=== PATIENT | male | born 1955 | race Hispanic/Latino ===

== ENCOUNTER 2018-08-26 14:51 | Observation (INO) | payer OTHER ==
[~2018-08-26] VITALS: Ht 182.9 cm; Wt 87.5 kg
[2018-08-26] MEDS ORDERED: INSULIN HUMULIN R 100 UNIT/ML 3ML ONE ×2 (16:29→20:18)
[2018-08-26 16:33] LABS: BASOPHILS % (AUTO) 0.3 % (0.0-5.0); HEMATOCRIT 52.9 % (42-54); LYMPHOCYTES % (AUTO) 12.1 % (21.0-51.0); MEAN CORPUSCULAR HEMOGLOBIN 29.5 pg (27.0-33.0); MEAN CORPUSCULAR HGB CONC 32.5 g/dL (32.0-36.0); MEAN CORPUSCULAR VOLUME 90.6 fL (79-99); MONOCYTES % (AUTO) 7.1 % (3.0-13.0); NEUTROPHILS % (AUTO) 80.5 % (40.0-77.0); NUCLEATED RED BLOOD CELLS 0.1 % (0.0-0.19); PLATELET COUNT (AUTO) 195 K/uL (130-400); RED BLOOD CELL COUNT(AUTO) 5.84 MIL/uL (4.50-6.20); RED CELL DISTRIBUTION WIDTH 15.3 % (11.0-15.5); WHITE BLOOD COUNT (AUTO) 12.6 K/uL (4.8-10.8)
[2018-08-26 16:51] LABS: APPEARANCE,URINE Clear (CLEAR); BILIRUBIN,URINE Negative (NEGATIVE); COLOR,URINE Yellow (YELLOW); GLUCOSE, URINE (UA) >=1000 mg/dL (NEGATIVE); KETONES,URINE 15 mg/dL (NEGATIVE); LEUKOCYTE ESTERASE ,URINE Trace (NEGATIVE); NITRATE,URINE Negative (NEGATIVE); OCCULT BLOOD,URINE Trace (NEGATIVE); PROTEIN,URINE Negative (NEGATIVE); UROBILINOGEN,URINE 0.2 mg/dL (0.2-1.0)
[2018-08-26 16:52] LABS: CARBON DIOXIDE 22 mmol/L (21-32); CHLORIDE 98 mmol/L (101-111); CREATININE 2.1 mg/dL (0.5-1.5); GLOMERULAR FILTR. RATE CALC 34 mL/min (>60); POTASSIUM 4.9 mmol/L (3.5-5.1); SODIUM SERUM 136 mmol/L (136-145); UREA NITROGEN, BLOOD 68 mg/dL (7-18)
[2018-08-26 16:55] LABS: GLUCOSE,RANDOM 728 mg/dL (70-105)
[2018-08-26 17:00] LABS: ACETONE,BLOOD POSITIVE SMALL (NEGATIVE)
[2018-08-26 17:24] LABS: HYALINE CASTS, URINE 0-1 /LPF (0-1 /LPF)
[2018-08-26 17:26] LABS: YEAST,URINE BUDDING Rare /HPF (None Seen)
[2018-08-26 17:27] LABS: BACTERIA,URINE Few /HPF (None Seen); MUCUS,URINE Rare LPF (None Seen)
[2018-08-26] MEDS ORDERED: ACETAMINOPHEN 325 MG TAB PO PRN (19:30)
[2018-08-26] MEDS ORDERED: ONDANSETRON HCL 4 MG/2 ML VIAL IVP PRN (19:30)
[2018-08-26] MEDS: SODIUM CHLORIDE 0.9% 1000ML 1,000 ML IV SCH (19:30)
[2018-08-26] MEDS ORDERED: DEXTROSE 50%-WATER 50 ML DISP.SYRIN IV PRN (19:30)
[2018-08-26] MEDS ORDERED: GLUCAGON 1MG KIT 1 MG ML IM PRN (19:30)
[2018-08-27] MEDS ORDERED: INSULIN HUMULIN R 100 UNIT/ML 3ML ONE (00:58)
[2018-08-27] MEDS ORDERED: NITROGLYCERIN 0.4 MG SL TAB SL ONE (02:51)
[2018-08-27] MEDS ORDERED: LORAZEPAM 2 MG/ML 1 ML VIAL ONE (02:52)
[2018-08-27] MEDS ORDERED: ONDANSETRON HCL 4 MG/2 ML VIAL ONE (03:10)
--- NOTE | 2018-08-27 04:00 | NUR ---
ADMISSION NOTE: Received per wheelchair and transferred in bed comfortably. Amb with guarding.VS checked and recorded. Assessment done. Plan of care initiated. was with the patient. Oriented to room and use of call light. Policies and procedures explained. Verbalized understanding. Monitored and kept watched for any unusualities. Distress / discomfort not noted. Needs attended and cared for.
[2018-08-27 04:05] VITALS: BP 116/74
[2018-08-27] MEDS ORDERED: CHOL100018 PO (05:01)
[2018-08-27] MEDS ORDERED: PRAV40TA3 PO (05:01)
[2018-08-27] MEDS ORDERED: LISI-613 PO (05:01)
[2018-08-27] MEDS ORDERED: ACET-2743 PO (05:01)
[2018-08-27] MEDS ORDERED: AMLO5TAB9 PO (05:01)
[2018-08-27] MEDS ORDERED: LEVO50 PO (05:01)
[2018-08-27] MEDS ORDERED: HYDR12.54 PO (05:01)
[2018-08-27 05:11] LABS: HEMATOCRIT 49.8 % (42-54); MEAN CORPUSCULAR HEMOGLOBIN 28.7 pg (27.0-33.0); MEAN CORPUSCULAR HGB CONC 32.6 g/dL (32.0-36.0); PLATELET COUNT (AUTO) 214 K/uL (130-400); RED BLOOD CELL COUNT(AUTO) 5.66 MIL/uL (4.50-6.20); WHITE BLOOD COUNT (AUTO) 12.9 K/uL (4.8-10.8)
[2018-08-27 05:35] LABS: ALBUMIN 3.3 g/dL (3.5-5.0); BILIRUBIN,TOTAL 0.7 mg/dL (0.2-1.0); CREATININE 1.4 mg/dL (0.5-1.5); POTASSIUM 3.8 mmol/L (3.5-5.1); TOTAL PROTEIN, SERUM 6.8 g/dL (6.0-8.3)
[2018-08-27] MEDS: SODIUM CHLORIDE 0.9% 1000ML 1,000 ML IV SCH ×2 (06:18→17:35)
[2018-08-27] MEDS: INSULIN R PO SS2 SQ SCH ×3 (06:21→10:33)
[2018-08-27 07:00] VITALS: BP 122/75
[2018-08-27] MEDS: PANTOPRAZOLE SODIUM 40 MG TABLET.DR PO SCH (10:10)
--- NOTE | 2018-08-27 11:02 | NUR ---
NOTIFIED DR. ANCA RIVAS NOTIFIED OF PATIENT BLOOD SUGAR 356. INSULIN COVERAGE PROVIDED- SEE EMAR. NO NEW ORDERS RECEIVED AT THIS TIME.
[2018-08-27 11:50] VITALS: BP 110/66
--- NOTE | 2018-08-27 13:00 | NUR ---
CM NOTE /IA MET W PT /SPOUSE, PT SLEEPY,SPOUSE JEROME PROVIDED INFORMATION, WILL PORIVDE TRANSPORT. PT INDP OF ADL, NO DME/HH/PROVIDER, PREVIOUSLY DIET CONTROLLED DIABETIC, NOW W HIGH SUGARS. NO ABG DONE ON ADMIT, TRACE KETONES IN THE URINGE, BG 700, SPOUSE STATES HAS BEEN DRINKNING APPLEY JUICE TO CLEAR HIS ARTERIS SEENON YOU TUBE. NO DC NEEDS ANTICIPATED. Addendum: 08/30/18 at 0719 by DAVI MAXWELL RN CM Amended: Links added.
[2018-08-27] MEDS ORDERED: ACETAMINOPHEN EXTRA STRENGTH 500 MG TABLET PO PRN (13:30)
[2018-08-27 13:45] LABS: HEMOGLOBIN A1C 9.7 % (4.0-6.0)
--- NOTE | 2018-08-27 14:33 | NUR ---
RD Notification Patient asleep upon visit. Patient with 100%PO as per patients . Patient with no complaint of nausea, vomitting. Patient often struggles with BM as per patient's (LBM 08/25/18); Rec to add stool softener. RD provided diet education to , who is main cook/dance teacher of household. verbalized understanding and accepted education reference materials and handouts. with pertinent questions. RD answered all questions. Patient monitored labs: BUN 54, GFR 54, Glu 241, Alb 3.3. RD to continue to monitor. Please notify RD as nutritional concerns arise. Thank you. Addendum: 08/27/18 at [address] RD Amended: Links added.
--- NOTE | 2018-08-27 14:39 | NUR ---
Diet Education Patient sleeping upon visit. JENNIFER provided diet education to , who is main cook/shoe sticks repairer of household. with pertinent questions. RD answered all questions. verbalized understanding and accepted education reference materials and handouts. RD to follow up. Addendum: 08/27/18 at [address] RD Amended: Links added.
--- NOTE | 2018-08-27 15:27 | NUR ---
DIABETES DIET EDUCATION Provided pt with printed materials on diabetes diet. Pt's at bedside who is pt's primary caregiver. Both, pt and his , with multiple nutritional questions. Diet education provided x2, one in the morning-one in the afternoon. Please consult JENNIFER if pt or continue to have diet questions. Addendum: 08/27/18 at [address] Amended: Links added.
[2018-08-27 16:00] VITALS: BP 126/65
[2018-08-27] MEDS: INSULIN HUMULIN R 100 UNIT/ML 3ML SQ SCH ×2 (17:32→21:44)
[2018-08-27] MEDS: INSULIN GLARGINE 100 UNITS/ML 10 ML VIAL SQ SCH ×2 (17:33→21:45)
[2018-08-27 20:00] VITALS: BP 117/71
[2018-08-28] VITALS: BP 114/76
[2018-08-28 04:00] VITALS: BP 135/87
[2018-08-28 04:41] LABS: CHOLESTEROL 210 mg/dL (<200); HDL CHOLESTEROL 28 mg/dL (29-71); LDL DIRECT 94 mg/dL (0-99); TRIGLYCERIDES 495 mg/dL (30-200)
[2018-08-28] MEDS: INSULIN HUMULIN R 100 UNIT/ML 3ML SQ SCH ×4 (06:18→21:44)
[2018-08-28] MEDS: LEVOTHYROXINE 50 MCG TABLET PO SCH (06:52)
[2018-08-28] MEDS: SODIUM CHLORIDE 0.9% 1000ML 1,000 ML IV SCH ×2 (06:52→09:56)
[2018-08-28 08:00] VITALS: BP 136/75
[2018-08-28] MEDS: ***HM*** (Cholecalciferol (Vitamin D3) (Vitamin D3) 1,000 UNIT) PO SCH (09:00)
[2018-08-28] MEDS: PANTOPRAZOLE SODIUM 40 MG TABLET.DR PO SCH (09:55)
[2018-08-28] MEDS: LISINOPRIL 20 MG TABLET PO SCH (09:55)
[2018-08-28] MEDS: AMLODIPINE BESYLATE 5 MG TAB PO SCH (09:55)
[2018-08-28] MEDS: HYDROCHLOROTHIAZIDE 25 MG TABLET PO SCH (09:55)
[2018-08-28] MEDS: SIMVASTATIN 20 MG TABLET PO SCH (10:00)
[2018-08-28 11:55] VITALS: BP 126/77
[2018-08-28] MEDS ORDERED: DOCUSATE SODIUM 100 MG CAP PO PRN (15:30)
[2018-08-28 16:00] VITALS: BP 110/75
[2018-08-28] MEDS: METFORMIN HCL 500 MG TABLET PO SCH (17:09)
[2018-08-28 20:14] VITALS: BP 110/64
[2018-08-28] MEDS: INSULIN GLARGINE 100 UNITS/ML 10 ML VIAL SQ SCH (21:43)
[2018-08-29 00:34] VITALS: BP 124/66
[2018-08-29 03:54] VITALS: BP 94/50
[2018-08-29 04:24] LABS: HEMATOCRIT 45.9 % (42-54); MEAN CORPUSCULAR HEMOGLOBIN 28.8 pg (27.0-33.0); MEAN CORPUSCULAR HGB CONC 33.5 g/dL (32.0-36.0); MEAN CORPUSCULAR VOLUME 86.2 fL (79-99); PLATELET COUNT (AUTO) 175 K/uL (130-400); RED BLOOD CELL COUNT(AUTO) 5.33 MIL/uL (4.50-6.20); RED CELL DISTRIBUTION WIDTH 14.6 % (11.0-15.5); WHITE BLOOD COUNT (AUTO) 9.8 K/uL (4.8-10.8)
[2018-08-29 04:39] LABS: CREATININE 0.9 mg/dL (0.5-1.5); POTASSIUM 3.4 mmol/L (3.5-5.1)
[2018-08-29] MEDS: LEVOTHYROXINE 50 MCG TABLET PO SCH (05:53)
[2018-08-29] MEDS: INSULIN HUMULIN R 100 UNIT/ML 3ML SQ SCH ×2 (05:54→13:04)
[2018-08-29 08:00] VITALS: BP 129/75
[2018-08-29] MEDS ORDERED: GLIPIZIDE XL 2.5MG TAB PO SCH (08:00)
[2018-08-29] MEDS: ***HM*** (Cholecalciferol (Vitamin D3) (Vitamin D3) 1,000 UNIT) PO SCH (09:00)
[2018-08-29] MEDS ORDERED: POLYETHYLENE GLYCOL 3350 17 GM POWD.PACK PO SCH (09:00)
--- NOTE | 2018-08-29 09:00 | NUR ---
cm note met with patient and spouse, and discussed importance of glucose monitoring, per she has a meter at home. referral made to [facility] for followup with diabetes education and glucometer supplies program.
[2018-08-29] MEDS: PANTOPRAZOLE SODIUM 40 MG TABLET.DR PO SCH (10:00)
[2018-08-29] MEDS: SIMVASTATIN 20 MG TABLET PO SCH (10:00)
[2018-08-29] MEDS: HYDROCHLOROTHIAZIDE 25 MG TABLET PO SCH (10:00)
[2018-08-29] MEDS: AMLODIPINE BESYLATE 5 MG TAB PO SCH (10:00)
[2018-08-29] MEDS: LISINOPRIL 20 MG TABLET PO SCH (10:01)
[2018-08-29] MEDS: METFORMIN HCL 500 MG TABLET PO SCH (10:05)
[2018-08-29 12:00] VITALS: BP 127/71
--- NOTE | 2018-08-29 15:00 | NUR ---
pt d/c with extensive diabetic education iv removed, catheter intact pt denies sob or chest pain
== END 2018-08-29 17:48 | disposition home or self-care (01) ==
LOC: EDH 14:51 → EDHIP 18:24 → 4CH 08-27 03:20
PROVIDERS: ADMIT Internal Medicine Critical Care Medicine; ATTEND Internal Medicine Critical Care Medicine
DX: E11.65 Type 2 diabetes mellitus with hyperglycemia (principal); E11.22 Type 2 diabetes mellitus with diabetic chronic kidney disease; E78.5 Hyperlipidemia, unspecified; E86.0 Dehydration; N17.9 Acute kidney failure, unspecified; I12.9 Hypertensive chronic kidney disease with stage 1 through stage 4 chronic kidney disease, or unspecified chronic kidney disease; N18.9 Chronic kidney disease, unspecified; F17.210 Nicotine dependence, cigarettes, uncomplicated; Z79.4 Long term (current) use of insulin; Z79.899 Other long term (current) drug therapy
CPT/HCPCS: 36415 ×4; 80048 ×2; 80053; 80061; 81001; 82009; 82948 ×16; 83036; 85025; 85027 ×2; 96360; 96361 ×2; 96372 ×3; 99284; G0378 ×71; J1815 ×10; J2060; J2405; J7030

== ENCOUNTER → 2019-03-22 | Outpatient (CLI) | payer OTHER ==
[~2019-03-22] MED LIST: ACET-2743 PO; AMLO5TAB9 PO; CHOL100018 PO; HYDR12.54 PO; IOHEXOL-350 75 ML VIAL IV ONE; LEVO50 PO; LISI-613 PO; PRAV40TA3 PO
== END | disposition home or self-care (01) ==
LOC: RAH 08:08
PROVIDERS: ATTEND Internal Medicine Cardiovascular Disease
DX: I71.4 Abdominal aortic aneurysm, without rupture (principal); K42.9 Umbilical hernia without obstruction or gangrene; K57.30 Diverticulosis of large intestine without perforation or abscess without bleeding; I70.8 Atherosclerosis of other arteries
CPT/HCPCS: 74174; Q9967

== ENCOUNTER → 2020-12-18 | Outpatient (CLI) | payer OTHER ==
[~2020-12-18] MED LIST changes: +AMLO-257 PO; -AMLO5TAB9 PO; +IOHEXOL 350 MG/ML 100ML INFUS..BTL IV ONE; -IOHEXOL-350 75 ML VIAL IV ONE; -LISI-613 PO; +LISI20TA24 PO
== END | disposition home or self-care (01) ==
LOC: RAH 07:37
PROVIDERS: ATTEND Internal Medicine Cardiovascular Disease
DX: I25.10 Atherosclerotic heart disease of native coronary artery without angina pectoris (principal); I71.4 Abdominal aortic aneurysm, without rupture; N32.9 Bladder disorder, unspecified; R22.9 Localized swelling, mass and lump, unspecified; K57.90 Diverticulosis of intestine, part unspecified, without perforation or abscess without bleeding
CPT/HCPCS: 74174; Q9967

== ENCOUNTER → 2020-12-20 | Outpatient (CLI) | payer OTHER ==
[~2020-12-20] MED LIST changes: -IOHEXOL 350 MG/ML 100ML INFUS..BTL IV ONE
== END | disposition home or self-care (01) ==
LOC: SHCH 08:54
PROVIDERS: ATTEND Internal Medicine Cardiovascular Disease
DX: I25.10 Atherosclerotic heart disease of native coronary artery without angina pectoris (principal)
CPT/HCPCS: 93306; 93356

== ENCOUNTER 2021-07-04 06:02 | Day surgery (SDC) | payer OTHER ==
[2021-07-02 10:37] LABS: BASOPHILS % (AUTO) 0.3 % (0.0-5.0); EOSINOPHILS % (AUTO) 4.3 % (0.0-8.0); HEMATOCRIT 51.7 % (42-54); LYMPHOCYTES % (AUTO) 31.1 % (21.0-51.0); MEAN CORPUSCULAR HEMOGLOBIN 27.9 pg (27.0-33.0); MEAN CORPUSCULAR HGB CONC 30.9 g/dL (32.0-36.0); MEAN CORPUSCULAR VOLUME 90.2 fL (79-99); MONOCYTES % (AUTO) 8.8 % (3.0-13.0); NEUTROPHILS % (AUTO) 55.2 % (40.0-77.0); PLATELET COUNT (AUTO) 265 K/uL (130-400); RED BLOOD CELL COUNT(AUTO) 5.73 MIL/uL (4.50-6.20); RED CELL DISTRIBUTION WIDTH 14.8 % (11.0-15.5); WHITE BLOOD COUNT (AUTO) 9.9 K/uL (4.8-10.8)
[2021-07-02 10:38] LABS: APPEARANCE,URINE Clear (CLEAR); BILIRUBIN,URINE Negative (NEGATIVE); COLOR,URINE Yellow (YELLOW); GLUCOSE, URINE (UA) Negative (NEGATIVE); KETONES,URINE Negative (NEGATIVE); LEUKOCYTE ESTERASE ,URINE Small (NEGATIVE); NITRATE,URINE Negative (NEGATIVE); OCCULT BLOOD,URINE Large (NEGATIVE); PH,URINE 5.5 (5.0-8.0); PROTEIN,URINE Negative (NEGATIVE)
[2021-07-02 10:47] VITALS: BP 135/71
[2021-07-02 10:47] LABS: POTASSIUM 4.6 mmol/L (3.5-5.1)
[2021-07-02 11:00] LABS: INR 1.01 (0.85-1.15)
[2021-07-02 11:01] LABS: PARTIAL THROMBOPLASTIN TIME 30.2 SEC (26.3-35.5)
[2021-07-02 11:02] LABS: BACTERIA,URINE Few /HPF (None Seen)
[2021-07-02 11:03] LABS: WBC,URINE 0-1 /HPF (0-1)
[2021-07-02 11:04] LABS: SQUAMOUS EPITHELIAL CELL,UR 0-2 /HPF (0-2)
[~2021-07-04] VITALS: Ht 175.3 cm; Wt 85.3 kg
[2021-07-04] VITALS (10 sets, daily range): BP systolic 108–130; BP diastolic 66–87
[~2021-07-04 06:02] MED LIST changes: +0.9% NACL 500ML IV.SOLN 500 ML IV SCH; +0.9%NACL 1000ML 1,000 ML IV ONE; -ACET-2743 PO; -CHOL100018 PO; +CHOL100046 PO; +FISH12002 PO; -PRAV40TA3 PO; +ROSU20TA31 PO
[2021-07-04] MEDS ORDERED: SODIUM BICARB 50MEQ 50ML VIAL 50 ML ONE (07:39)
[2021-07-04] MEDS ORDERED: HEPARIN 10,000 UNIT/10ML (1,000 UNIT/ML) VIAL ONE (07:39)
[2021-07-04] MEDS ORDERED: NITROGLYCERIN 50MG VIAL ONE (07:39)
[2021-07-04] MEDS ORDERED: IOHEXOL-350 50ML VIAL IV ONE (07:40)
[2021-07-04] MEDS ORDERED: IOHEXOL 350 MG/ML 100ML INFUS..BTL IV ONE (07:40)
[2021-07-04] MEDS ORDERED: MIDAZOLAM HCL 1 MG/ML 2ML VIAL ONE (07:41)
[2021-07-04] MEDS ORDERED: LIDOCAINE HCL 400MG/20ML VIAL ONE (07:41)
[2021-07-04] MEDS ORDERED: FENTANYL CITRATE PF 50 MCG/1 ML 2ML VIAL ONE (07:41)
[2021-07-04] MEDS ORDERED: NICARDIPINE 25MG INJ IV ONE (08:22)
[2021-07-04] MEDS ORDERED: 0.9%NACL 1000ML 1,000 ML IV SCH (09:00)
== END 2021-07-04 13:50 | disposition home or self-care (01) ==
LOC: DAH 06:02
PROVIDERS: ATTEND Internal Medicine Cardiovascular Disease
DX: I25.10 Atherosclerotic heart disease of native coronary artery without angina pectoris (principal); I25.82 Chronic total occlusion of coronary artery; I71.4 Abdominal aortic aneurysm, without rupture; D49.4 Neoplasm of unspecified behavior of bladder; I10 Essential (primary) hypertension; E78.2 Mixed hyperlipidemia; E11.59 Type 2 diabetes mellitus with other circulatory complications; F17.210 Nicotine dependence, cigarettes, uncomplicated; Z98.890 Other specified postprocedural states; Z83.3 Family history of diabetes mellitus; Z82.49 Family history of ischemic heart disease and other diseases of the circulatory system; Z80.9 Family history of malignant neoplasm, unspecified; Z79.01 Long term (current) use of anticoagulants; Z79.899 Other long term (current) drug therapy
CPT/HCPCS: 36415; 71045; 80048; 81001; 82948 ×2; 85025; 85610; 85730; 93005; 93458; A4215; A4216; A4221; A4222; A4223 ×3; A4606; A4663; C1769; C1894; J1644 ×2; J2250; J3010; J3490 ×4; J7030; Q9965 ×2; Q9967 ×2; 99156; 99157

== ENCOUNTER → 2022-02-19 | Outpatient (CLI) | payer OTHER ==
[~2022-02-19] MED LIST changes: -0.9% NACL 500ML IV.SOLN 500 ML IV SCH; -0.9%NACL 1000ML 1,000 ML IV ONE; +AEC81 PO; -AMLO-257 PO; -CHOL100046 PO; +CYAN-35 PO; +ERGO500093 PO; +GARL1000 PO; -HYDR12.54 PO; -LISI20TA24 PO; +METO25 PO; +ZINC220T4 PO; +iron PO
[2022-02-19 12:32] LABS: ALBUMIN 3.9 g/dL (3.5-5.0); CREATININE 0.9 mg/dL (0.5-1.5); POTASSIUM 4.2 mmol/L (3.5-5.1); TOTAL PROTEIN, SERUM 7.5 g/dL (6.0-8.3)
== END | disposition home or self-care (01) ==
LOC: LAB 08:55
PROVIDERS: ATTEND Physician Assistant
DX: I10 Essential (primary) hypertension (principal)
CPT/HCPCS: 36415; 80053

== ENCOUNTER → 2022-02-27 | Outpatient (CLI) | payer OTHER ==
[~2022-02-27] MED LIST changes: +IOHEXOL 350 MG/ML 100ML INFUS..BTL IV ONE
== END | disposition home or self-care (01) ==
LOC: RAH 08:25
PROVIDERS: ATTEND Internal Medicine Cardiovascular Disease
DX: I71.40 Abdominal aortic aneurysm, without rupture, unspecified (principal); M47.815 Spondylosis without myelopathy or radiculopathy, thoracolumbar region; I70.0 Atherosclerosis of aorta
CPT/HCPCS: 74174; Q9967

== ENCOUNTER → 2022-06-10 | Outpatient (CLI) | payer OTHER ==
[~2022-06-10] MED LIST changes: -IOHEXOL 350 MG/ML 100ML INFUS..BTL IV ONE
== END | disposition home or self-care (01) ==
LOC: LAB 08:17
PROVIDERS: ATTEND Internal Medicine Cardiovascular Disease
DX: M79.10 Myalgia, unspecified site (principal); Z79.899 Other long term (current) drug therapy
CPT/HCPCS: 82306

== ENCOUNTER → 2022-09-05 | Outpatient (CLI) | payer OTHER ==
[2022-09-05 12:31] LABS: ALBUMIN 4.1 g/dL (3.5-5.0); BILIRUBIN,DIRECT 0.1 mg/dL (0.0-0.3)
== END | disposition home or self-care (01) ==
LOC: LAB 08:04
PROVIDERS: ATTEND Internal Medicine Cardiovascular Disease
DX: I25.10 Atherosclerotic heart disease of native coronary artery without angina pectoris (principal); Z78.9 Other specified health status
CPT/HCPCS: 36415; 80061; 80076

== ENCOUNTER → 2022-09-23 | Outpatient (CLI) | payer OTHER | END | disposition home or self-care (01) | LOC: RAH 08:34 | PROVIDERS: ATTEND Internal Medicine Cardiovascular Disease | DX: N28.1 Cyst of kidney, acquired (principal); R94.5 Abnormal results of liver function studies | CPT/HCPCS: 76705 ==

== ENCOUNTER → 2023-01-12 | Outpatient (CLI) | payer OTHER ==
[~2023-01-12] MED LIST changes: -ROSU20TA31 PO; +ROSU20TA73 PO
[2023-01-12 13:07] LABS: ALBUMIN 3.9 g/dL (3.5-5.0); BILIRUBIN,TOTAL 0.4 mg/dL (0.2-1.0); CREATININE 0.8 mg/dL (0.5-1.5); TOTAL PROTEIN, SERUM 7.7 g/dL (6.0-8.3)
== END | disposition home or self-care (01) ==
LOC: LAB 08:04
PROVIDERS: ATTEND Internal Medicine Cardiovascular Disease
DX: I10 Essential (primary) hypertension (principal); R94.5 Abnormal results of liver function studies
CPT/HCPCS: 36415; 80053; 80061

== ENCOUNTER → 2023-04-16 | Outpatient (CLI) | payer OTHER ==
[2023-04-16 16:36] LABS: ALBUMIN 3.6 g/dL (3.5-5.0); BILIRUBIN,DIRECT 0.1 mg/dL (0.0-0.3); BILIRUBIN,TOTAL 0.8 mg/dL (0.2-1.0); TOTAL PROTEIN, SERUM 7.2 g/dL (6.0-8.3)
== END | disposition home or self-care (01) ==
LOC: LAB 12:57
PROVIDERS: ATTEND Internal Medicine Cardiovascular Disease
DX: E78.2 Mixed hyperlipidemia (principal)
CPT/HCPCS: 36415; 80076

== ENCOUNTER → 2023-08-03 | Outpatient (CLI) | payer OTHER | END | disposition home or self-care (01) | LOC: SHCH 07:43 | PROVIDERS: ATTEND Internal Medicine Cardiovascular Disease | DX: I25.810 Atherosclerosis of coronary artery bypass graft(s) without angina pectoris (principal) | CPT/HCPCS: 93978 ==

== ENCOUNTER → 2023-09-03 | Outpatient (CLI) | payer OTHER ==
[2023-09-03 16:23] LABS: BASOPHILS # (AUTO) 0.02 K/uL (0.00-0.20); BASOPHILS % (AUTO) 0.2 % (0.0-5.0); EOSINOPHILS # (AUTO) 0.38 K/uL (0.00-0.70); EOSINOPHILS % (AUTO) 4.6 % (0.0-8.0); HEMATOCRIT 53.4 % (42-54); IMMATURE GRANULOCYTE ABSOLUTE 0.05 K/uL (0-1); LYMPHOCYTES # (AUTO) 2.9 K/uL (1.0-4.8); LYMPHOCYTES % (AUTO) 35.6 % (21.0-51.0); MEAN CORPUSCULAR HEMOGLOBIN 30.5 pg (27.0-33.0); MEAN CORPUSCULAR HGB CONC 32.8 g/dL (32.0-36.0); MONOCYTES # (AUTO) 1.1 K/uL (0.1-1.0); MONOCYTES % (AUTO) 12.7 % (3.0-13.0); NEUTROPHILS # (AUTO) 3.8 K/uL (1.8-7.7); NEUTROPHILS % (AUTO) 46.3 % (40.0-77.0); PLATELET COUNT (AUTO) 283 K/uL (130-400); RED BLOOD CELL COUNT(AUTO) 5.74 MIL/uL (4.50-6.20); RED CELL DISTRIBUTION WIDTH 14.6 % (11.0-15.5); WHITE BLOOD COUNT (AUTO) 8.2 K/uL (4.8-10.8)
== END | disposition home or self-care (01) ==
LOC: LAB 15:49
PROVIDERS: ATTEND Internal Medicine Cardiovascular Disease
DX: I10 Essential (primary) hypertension (principal)
CPT/HCPCS: 36415; 85025

== ENCOUNTER → 2023-09-10 | Outpatient (CLI) | payer OTHER ==
[2023-09-10 12:23] LABS: POTASSIUM 4.3 mmol/L (3.5-5.1)
== END | disposition home or self-care (01) ==
LOC: LAB 08:14
PROVIDERS: ATTEND Internal Medicine Cardiovascular Disease
DX: I10 Essential (primary) hypertension (principal)
CPT/HCPCS: 36415; 80048

== ENCOUNTER → 2024-06-16 | Outpatient (CLI) | payer OTHER ==
[~2024-06-16] MED LIST changes: -GARL1000 PO; +GARL10002 PO; -ROSU20TA73 PO; +ROSU20TA98 PO
[2024-06-16 12:50] LABS: BILIRUBIN,TOTAL 0.8 mg/dL (0.2-1.0); CREATININE 1.1 mg/dL (0.5-1.3); POTASSIUM 4.6 mmol/L (3.5-5.1); TOTAL PROTEIN, SERUM 7.9 g/dL (6.0-8.3)
== END | disposition home or self-care (01) ==
LOC: LAB 08:13
PROVIDERS: ATTEND Internal Medicine Cardiovascular Disease
DX: Z12.31 Encounter for screening mammogram for malignant neoplasm of breast (principal); I10 Essential (primary) hypertension; Z79.899 Other long term (current) drug therapy
CPT/HCPCS: 36415; 80053; 80061

== ENCOUNTER → 2024-06-29 | Outpatient (CLI) | payer OTHER ==
[~2024-06-29] MED LIST changes: +IOHEXOL 350 MG/ML 100ML INFUS..BTL IV ONE
--- NOTE | 2024-06-29 13:19 | HMCIMG ---
CT ANGIO ABD/PEL POST AAA 5MM HISTORY: Abdominal aortic aneurysm COMPARISON: 02/27/2022 TECHNIQUE: CT angiography of the abdomen and pelvis was obtained using angiographic technique with maximum intensity projection reconstruction images. Patient was given 100 cc of Omnipaque through intravenous route. Oral contrast was not given. FINDINGS: No pleural effusion is seen bilaterally.. changes are seen with interstitial fibrosis. There is no evidence of parenchymal disease or pulmonary nodule of the visualized lower lungs. Degenerative changes of the thoracolumbar spine are present. The heart is not enlarged. The liver, spleen, adrenal glands and pancreas are unremarkable. There is no evidence of hydronephrosis bilaterally. No evidence of renal stone is seen. Fecal material is seen in the colon. There are normal size retroperitoneal and mesenteric lymph nodes. No ascites is seen. Atherosclerotic changes are present. There is diffuse atherosclerotic disease. There is aortic aneurysm repair changes with aortobilateral iliac stent graft. No extravasation of contrast is seen. No leakage is seen. Extensive vascular calcifications are also seen. The celiac, superior mesenteric and bilateral renal arteries are grossly patent. The visualized portion of the iliac and femoral arterial systems are also grossly patent. Pelvic sidewalls are symmetric bilaterally. Bladder is well distended without wall thickening. IMPRESSION: 1. . Aortobilateral iliac stent graft. No leakage is seen. Diverticulosis. CT was performed with one or more following dose reduction techniques: automated exposure control, adjustment of the mA and kv according to patient's size, or use of a iterative reconstruction technique.
== END | disposition home or self-care (01) ==
LOC: RAH 11:19
PROVIDERS: ATTEND Internal Medicine Cardiovascular Disease
DX: K57.90 Diverticulosis of intestine, part unspecified, without perforation or abscess without bleeding (principal); J84.10 Pulmonary fibrosis, unspecified; I71.40 Abdominal aortic aneurysm, without rupture, unspecified; M47.815 Spondylosis without myelopathy or radiculopathy, thoracolumbar region
CPT/HCPCS: 74174; Q9967

== ENCOUNTER → 2024-12-26 | Outpatient (CLI) | payer OTHER ==
[~2024-12-26] MED LIST changes: -IOHEXOL 350 MG/ML 100ML INFUS..BTL IV ONE
[2024-12-26 21:43] VITALS: PULSE 60; RESP 12
[2024-12-26 22:00] VITALS: PULSE 59; RESP 12
[2024-12-26 22:31] VITALS: PULSE 56; RESP 12
[2024-12-26 23:02] VITALS: PULSE 61; RESP 12
[2024-12-26 23:33] VITALS: PULSE 49; RESP 10
[2024-12-27] VITALS (10 sets, daily range): PULSE 51–69; RESP 10–20
== END | disposition home or self-care (01) ==
LOC: SLP 20:38
PROVIDERS: ATTEND Family Medicine
DX: G47.33 Obstructive sleep apnea (adult) (pediatric) (principal); R06.83 Snoring; I10 Essential (primary) hypertension; E11.9 Type 2 diabetes mellitus without complications; R51.9 Headache, unspecified
CPT/HCPCS: 95810

== ENCOUNTER → 2025-02-01 | Outpatient (CLI) | payer OTHER ==
[2025-02-01 22:23] VITALS: PULSE 61; RESP 20
[2025-02-01 23:01] VITALS: PULSE 50; RESP 13
[2025-02-01 23:10] VITALS: PULSE 71; RESP 13
[2025-02-01 23:37] VITALS: PULSE 73; RESP 26
[2025-02-02] VITALS (12 sets, daily range): PULSE 52–69; RESP 13–20
== END | disposition home or self-care (01) ==
LOC: SLP 20:21
PROVIDERS: ATTEND Family Medicine
DX: G47.33 Obstructive sleep apnea (adult) (pediatric) (principal)
CPT/HCPCS: 95811